=== PATIENT | female | born 1950 | race Caucasian/White ===

== ENCOUNTER 2017-03-27 10:07 | Emergency (ER) | payer MEDICARE, OTHER ==
[~2017-03-27] VITALS: Ht 167.6 cm; Wt 60.9 kg
[~2017-03-27 10:07] MED LIST: ALEN70TA48 PO; AMMO226L TP; ASPI81 PO; BISA5TAB12 PO; DOCU250C91 PO; HALO5 PO; IPRNEB IH; KDUR20 PO; METF500T4 PO; METO50 PO; MOME0.24 IH; RISP2 PO; RISP3 PO; VITAD1000 PO
[2017-03-27] MEDS ORDERED: MELA3TAB66 PO (10:29)
[2017-03-27] MEDS ORDERED: IBUP-1506 PO (10:29)
[2017-03-27] MEDS ORDERED: SENN8.8S6 PO (10:29)
[2017-03-27] MEDS ORDERED: LACT30L PO (10:29)
[2017-03-27 11:33] LABS: GLUCOSE,POINT OF CARE 156 MG/DL (70-110)
[2017-03-27] MEDS ORDERED: HYDROCODONE/ACETAMINOPHEN 5-325 MG TABLET PO ONE (12:00)
[2017-03-27 12:03] LABS: EOSINOPHILS % (AUTO) 1.4 % (1.0-6.0); HEMOGLOBIN 13.8 g/dL (12.0-16.0); LYMPHOCYTES # (AUTO) 1.8 K/uL (1.0-4.8); LYMPHOCYTES % (AUTO) 14.6 % (22.0-44.0); MEAN CORPUSCULAR HEMOGLOBIN 30.8 pg (26.0-34.0); MEAN CORPUSCULAR HGB CONC 33.7 G/dL (31.0-37.0); MEAN CORPUSCULAR VOLUME 91 fL (80-100); MONOCYTES # (AUTO) 0.9 K/uL (0.1-1.0); MONOCYTES % (AUTO) 7.5 % (2.0-9.0); NEUTROPHILS # (AUTO) 9.2 K/uL (1.8-7.7); NEUTROPHILS % (AUTO) 76.5 % (40.0-70.0); PLATELET COUNT (AUTO) 166 K/uL (150-450); RED BLOOD CELL COUNT(AUTO) 4.48 MIL/uL (4.00-5.20); RED CELL DISTRIBUTION WIDTH 15.4 % (11.5-14.5); WHITE BLOOD COUNT (AUTO) 12.1 K/uL (4.5-11.0)
[2017-03-27 12:10] VITALS: BP 117/72
[2017-03-27 12:10] LABS: ANION GAP 7 mmol/L (8-16); CALCIUM, TOTAL 9.1 mg/dL (8.8-10.5); CARBON DIOXIDE 28 mmol/L (22-29); CHLORIDE 106 mmol/L (98-107); CREATININE 0.73 mg/dL (0.60-1.30); GLOMERULAR FILTR. RATE CALC > 60 mL/min (>60); POTASSIUM 4.3 mmol/L (3.5-5.1); SODIUM SERUM 141 mmol/L (136-145); UREA NITROGEN, BLOOD 12 mg/dL (7-18)
[2017-03-27 12:16] LABS: ALANINE AMINOTRANSFERASE 13 U/L (12-78); ALBUMIN 3.5 g/dL (3.4-5.0); ASPARTATE AMINOTRANSFERASE 9 U/L (15-37); BILIRUBIN,TOTAL 0.3 mg/dL (0.1-1.0); TOTAL PROTEIN, SERUM 7.6 g/dL (6.4-8.2)
[2017-03-27] MEDS ORDERED: MetroNIDAZOLE 500 MG/NACL 100 ML IV ONE (12:30)
[2017-03-27] MEDS ORDERED: CefTRIAXone 1 GM/DEXTROSE 50 ML IV ONE (12:30)
== END 2017-03-27 14:53 | disposition home or self-care (01) ==
LOC: EMS 10:09
DX: K02.9 Dental caries, unspecified (principal); K04.7 Periapical abscess without sinus; J44.9 Chronic obstructive pulmonary disease, unspecified; E11.9 Type 2 diabetes mellitus without complications; I10 Essential (primary) hypertension; F20.9 Schizophrenia, unspecified; F17.210 Nicotine dependence, cigarettes, uncomplicated; Z88.8 Allergy status to other drugs, medicaments and biological substances
CPT/HCPCS: 36415; 80053; 82962; 85025; 96365; 96368; 99284; J0696; J3490

== ENCOUNTER 2017-09-20 17:47 | Emergency (ER) | payer MEDICARE, OTHER ==
[~2017-09-20] VITALS: Ht 165.1 cm; Wt 74.1 kg
[~2017-09-20 17:47] MED LIST changes: +IBUP-1506 PO; +LACT30L PO; +MELA3TAB66 PO; +SENN8.8S6 PO
[2017-09-20] MEDS ORDERED: METO25 PO (18:03)
[2017-09-20] MEDS ORDERED: KDUR20 PO (18:03)
[2017-09-20] MEDS ORDERED: OLAN5TAB2 PO (18:03)
[2017-09-20 18:08] LABS: GLUCOSE,POINT OF CARE 122 MG/DL (70-110)
[2017-09-20 21:00] VITALS: BP 116/64
[2017-09-20] MEDS ORDERED: PENICILLIN V POTASSIUM 500 MG TABLET PO ONE (21:30)
== END 2017-09-20 21:54 | disposition home or self-care (01) ==
LOC: EMS 17:51
DX: K04.7 Periapical abscess without sinus (principal); K02.9 Dental caries, unspecified; I10 Essential (primary) hypertension; E11.9 Type 2 diabetes mellitus without complications; F20.9 Schizophrenia, unspecified; J44.9 Chronic obstructive pulmonary disease, unspecified; J45.909 Unspecified asthma, uncomplicated; F17.210 Nicotine dependence, cigarettes, uncomplicated; Z88.8 Allergy status to other drugs, medicaments and biological substances
CPT/HCPCS: 82962; 99283; 99406